=== PATIENT | female | born 1935 | race Hispanic/Latino ===

== ENCOUNTER 2018-04-25 02:35 | Inpatient (IN) | payer OTHER, MEDICARE ==
[~2018-04-25] VITALS: Ht 157.5 cm; Wt 64.4 kg
[~2018-04-25 02:35] MED LIST: ACETAMINOPHEN-1 EAC3 PO; ALENDRONATE SOD70 M2 PO; CEFUROXIME500 MG PO; GLIPIZIDE ER10 M1 PO; JANUMET XR 50-1 EAC1 PO; KOMBIGLYZE XR1 EAC2 PO; LISINOPRIL5 M1 PO; MELOXICAM15 M1; METHIMAZOLE5 M1 PO; NEXIUM40 M1 PO; SIMVASTATIN40 M1 PO; TOUJEO SOL300 UNIT/1 SC; ZOFRAN ODT4 M1 PO
[2018-04-25 04:55] LABS: ABSOLUTE BASOPHIL COUNT 0 /CUMM (0.0-0.2); ABSOLUTE EOSINOPHIL COUNT 0.1 /CUMM (0.0-0.7); ABSOLUTE GRANULOCYTE CT 4.4 /CUMM (1.4-6.5); ABSOLUTE LYMPH COUNT 1.8 /CUMM (1.2-3.4); ABSOLUTE MONOCYTE COUNT 0.5 /CUMM (0.10-0.60); BASOPHIL % 0.4 % (0.0-2.0); EOSINOPHIL % 1.4 % (0-5); GRANULOCYTE % 64.7 % (42.2-75.2); HEMATOCRIT 41.3 % (37-47); MEAN CORPUSCULAR HGB 29.3 PG (27.0-31.0); MEAN CORPUSCULAR HGB CONC 33.7 G/DL (33.0-37.0); MEAN CORPUSCULAR VOLUME 87.2 FL (81.0-99.0); MEAN PLATELET VOLUME 7.7 FL (7.4-10.4); PLATELET COUNT 283 /CUMM (130-400); RBC DISTRIBUTION WIDTH 12.5 % (11.5-14.5); RED BLOOD CELL CT 4.74 /CUMM (4.20-5.40); WHITE BLOOD CELL COUNT 6.8 /CUMM (4.8-10.8)
--- NOTE | 2018-04-25 05:17 | RADIOLOGY REPORT ---
EXAMINATION: XR PORTABLE CHEST CLINICAL INFORMATION: Hypoxia COMPARISON: 10/22/2015 TECHNIQUE: Portable frontal view of the chest was obtained. FINDINGS: Lung volumes are symmetric. No focal consolidation is seen. Mild right basilar subsegmental atelectasis is suspected. No evidence of pneumothorax, pleural effusion, or pulmonary edema. Cardiac size is within normal limits. Calcification is present at the aortic arch. No acute osseous findings are seen. IMPRESSION: No acute cardiopulmonary findings.
--- NOTE | 2018-04-25 05:20 | History & Physical ---
Luis E Quintana 04/25/18 0519: General Information and HPI MD Statement: I have seen and personally examined DARREN CASTLE and documented this H&P. The patient is a 82 year old F who presented with a patient stated chief complaint of [chest pain]. Source of Information: patient, family Exam Limitations: language barrier History of Present Illness: The patient is an 82-year-old female with a past medical history significant for diabetes mellitus, hypertension, hyperlipidemia, rheumatoid arthritis, hypothyroidism who presented to ED due to chest pain and shortness of breath. The patient is primarily Cuban-speaking and she was accompanied by her daughter who did the translation during the interview and physical examination. She was sleeping tonight when she woke up at 1:45 AM with heavy sweating and chest pain 8/10, left-sided, associated with shortness of breath, and dizziness. He called 911, when they got there they gave the patient aspirin, and sublingual nitroglycerin which decreased the pain to 3-4/10. The patient does not have any history of cardiac problems and was seen by Dr. Arias in February, echocardiogram and EKG were normal. Last September a stress test was done for her which was normal. Her daughter states that she does not have any cardiac disease she only follows with perfume compounder for checkup. She has been experiencing cramps in her lower extremities, and she had them during the interview. She also has a history of diabetes mellitus, but her blood sugars were in 120s-150s. Her insurance sales executive is Dr. Kiser, and her PCP is Dr. Zabala. She is states that her chest pain is worsened with coughing, deep respiration, and is reproducible with pressure applied on her chest wall. Allergy: No known allergies to any medications or food Past medical history: Diabetes mellitus, hypertension, hypercholesterolemia, rheumatoid arthritis, hyperparathyroidism, hearing impairment bilaterally Past surgical history: Left knee replacement, hip replacement Family history: Noncontributory Social history: She has never smoked, denies alcohol use or recreational drug use. Her primary language is Cuban and she cannot speak Thai, her daughter acts as entertainment agent. Allergies/Medications Allergies: Coded Allergies: soy (ANAPHYLAXIS 11/11/15) Home Med list Alendronate Sodium 70 MG TABLET 1 TAB PO QSAT BONES (Reported) in the morning, at least 30 minutes before the first food, beverage, or medication of the day Canagliflozin (Invokana) 100 MG TABLET 1 TAB PO DAILY DM (Reported) Esomeprazole (Nexium) 40 MG CAPSULE.DR 1 CAP PO DAILY GI (Reported) Fenofibrate Nanocrystallized (Fenofibrate) 48 MG TABLET 1 TAB PO DAILY HLD ( Reported) Glipizide (Glipizide ER) 10 MG TAB.ER.24 1 TAB PO DAILY DIABETES (Reported) Hydroxychloroquine Sulfate 200 MG TABLET 1 TAB PO DAILY RA (Reported) Insulin Glargine,Hum.rec.anlog (Basaglar Kwikpen U-100) 100 UNIT/ML (3 ML) INSULN.PEN 25 UNITS SC DAILY DM (Reported) Lisinopril 5 MG TABLET 1 TAB PO DAILY BP (Reported) Methimazole 5 MG TABLET 1 TAB PO DAILY THYROID (Reported) Prednisone 2.5 MG TABLET 1 TAB PO DAILY RA (Reported) Simvastatin (Simvastatin*) 40 MG TABLET 1 TAB PO QPM HLD (Reported) Sitagliptin Phos/Metformin HCl (Janumet XR 50-1,000 MG Tablet) 1 EACH TBMP.24HR 1 TAB PO DAILY DM (Reported) Compliance With Home Meds: GOOD Past History Travel History Traveled to [place] past 21 day No Medical History Cardiovascular: hypertension, hyperlipidemia Gastrointestinal: GERD Endocrine: diabetes History of MRSA: No History of VRE: No History of CDIFF: No Surgical History Surgical History: non-contributory Past Family/Social History Psychosocial History Services at Home: Nursing, Physical Therapy Review of Systems Review of Systems Constitutional: Reports: see HPI. Exam & Diagnostic Data Last 24 Hrs of Vital Signs/I&O Vital Signs Date Time Temp Pulse Resp B/P B/P Pulse O2 O2 Flow FiO2 Mean Ox Delivery Rate 04/25 0615 97.4 72 18 164/74 98 Nasal 4.0L Cannula 04/25 0445 97 Nasal 4.0L Cannula 04/25 0430 97.0 76 20 170/78 96 Nasal 4.0L Cannula 04/25 0300 95 Nasal 4.0L Cannula 04/25 0247 97.6 79 22 173/80 95 Nasal 4.0L Cannula Intake & Output 04/25 1600 04/25 0800 04/25 0000 Intake Total Output Total 350 Balance -350 Output, Urine 350 Patient 126 lb Weight Weight Reported by Patient Measurement Method Physical Exam General Appearance Alert, Oriented X3, Cooperative, No Acute Distress Skin No Rashes Skin Temp/Moisture Exam: Warm/Dry Sepsis Skin Exam (color): Normal for Ethnicity HEENT Atraumatic, PERRLA Neck Supple Cardiovascular Regular Rate, Normal S1, Normal S2 Lungs Clear to Auscultation, Normal Air Movement Abdomen Normal Bowel Sounds, Soft, No Tenderness Neurological Normal Speech, Strength at 5/5 X4 Ext, Normal Tone, Sensation Intact Extremities No Clubbing, No Cyanosis, No Edema, Normal Pulses Vascular Normal Pulses, Pulses Symmetrical Sepsis Peripheral Pulse Location: Dorsalis Pedis Sepsis Peripheral Pulse Exam: Normal Sepsis Cap Refill Exam: <2 Sec Last 24 Hrs of Labs/Ronald: Laboratory Tests 04/25/18354: Anion Gap 12, Estimated GFR 43 L, Glucose 110 H, Hemoglobin A1c 7.5 H, Calcium 9.4, Phosphorus 3.6, Magnesium 1.6, Total Bilirubin 0.2, AST 20, ALT 19, Troponin I < 0.01, Gkx-T-Trtptunhpus Pept 455 H, Albumin 4.3, Triglycerides 213 H, Cholesterol 152, LDL Cholesterol, Calc 65, HDL Cholesterol 45, Cholesterol/ HDL Ratio 3, TSH 0.036 L, Free T4 1.64, D-Dimer High Sensitivty < 200, CBC w Diff NO MAN DIFF REQ, RBC 4.74, MCV 87.2, MCH 29.3, MCHC 33.7, RDW 12.5, MPV 7.7 , Gran % 64.7, Lymphocytes % 25.9, Monocytes % 7.6, Eosinophils % 1.4, Basophils % 0.4, Absolute Granulocytes 4.4, Absolute Lymphocytes 1.8, Absolute Monocytes 0.5, Absolute Eosinophils 0.1, Absolute Basophils 0 04/25/185: Urinalysis LIGHT H, Urine Color YEL, Urine Clarity CLEAR, Urine pH 6.5, Ur Specific [place] 1.010, Urine Protein 30 H, Urine Ketones NEG, Urine Nitrite NEG, Urine Bilirubin NEG, Urine Urobilinogen 0.2, Ur Leukocyte Esterase SMALL H , Ur Microscopic SEDIMENT EXAMINED, Urine WBC 5-10 H, Ur Epithelial Cells FEW, Urine Bacteria FEW H, Urine Hemoglobin NEG, Urine Glucose NEG Microbiology 04/25 355 BLOOD: Blood Culture - RECD 04/25 345 URINE ROUT: Urine Culture - RECD 04/25 335 BLOOD: Blood Culture - RECD Assessment/Plan Assessment: Patient is an 82-year-old female past medical history significant for diabetes, hyperlipidemia, hypertension, rheumatoid arthritis on prednisone and chronic kidney disease who presented to ED with left-sided chest pain and sweating which woke her from sleep in the middle of night. Chest pain rule out ACS: The patient has diabetes, hypertension, is on prednisone, hyperlipidemia, and is high risk for ACS. Since the pain was aggravated by deep respiration and coughing pericarditis is also one possibility , and musculoskeletal causes cannot be ruled out. But since the patient woke up in the middle of the night with left-sided chest pain, dizziness, and sweating the most possible diagnosis would be ACS. Plan: Admit the patient to telemetry floor, continuous cardiac monitoring, serial EKG and troponins, perfume compounder consult As Ranked By This Provider Problem List: 1. Hyperthyroidism 2. Diabetes mellitus type 2 3. Chest pain Core Measures/Misc (04/23) Acute Coronary Syndrome ACS Diagnosis: No Congestive Heart Failure Congestive Heart Failure Diagnosis No Cerebrovascular Accident CVA/TIA Diagnosis: No VTE (View Protocol) VTE Risk Factors Age>40 No Mechanical VTE Prophylaxis d/t N/A MechProphylax Ordered No VTE Pharm Prophylaxis d/t NA PharmProphylax ordered Sepsis (View protocol) Sepsis Present: No If YES complete Sepsis Event Note If YES complete Sepsis Event Note Akiko Maier MD 04/25/18 0657: Core Measures/Misc (04/23) Sepsis (View protocol) If YES complete Sepsis Event Note If YES complete Sepsis Event Note Resident Review Statement Resident Statement: examined this patient, discussed with internist, agreed with internist, discussed with family, reviewed EMR data (avail), amended to note Other Findings: Patient is an 82-year-old Cuban only speaking female with past medical history of diabetes, hypertension, hyperlipidemia, rheumatoid arthritis, hyperthyroidism presenting this admission with chief complaint of difficulty breathing and chest pain. Patient is Cuban-speaking only. Patient's daughter was at bedside and provided translation and additional information. Patient was awoken 2-3 hours prior to admission due to difficulty catching her breath. Patient reports left- sided sharp stabbing chest pain, nonradiating, constant lasting approximately 1 hour. Reports pain was initially an 8 out of 10 in severity. After receiving aspirin and sublingual nitroglycerin from EMS patient's pain subsided to a 3-4 out of 10. Associated symptoms include sweats and difficulty breathing. Also reports dizziness however states that this is a chronic issue. Patient reports that chest pain worsens with deep inspiration and movement. Patient denies fever, chills, nausea/vomiting, constipation/diarrhea, dysuria/hematuria. Patient denies having these type of symptoms in the past. Patient's perfume compounder is Dr. Vazquez whom she saw last in February and per her daughter everything was normal. Daughter states that she had a stress test earlier in September/October of this year which was normal and an echocardiogram which was reportedly normal. Patient also sees Dr. Kiser for her diabetes. Reports no recent change in her medications. Patient's PCP is Dr. Zabala. Patient ED received DuoNeb treatment and IV Lasix 40 mg 1 due to concern of possible pulmonary edema. Past medical history: As above Past surgical history: Left knee replacement, right hip replacement Social history: Denies tobacco, alcohol, illicit drug use, currently uses a cane to ambulate and due to chronic dizziness and previous history of falls patient has a skiing teacher who stays with her Allergies: Denies any allergies to medications Patient is this 82-year-old Cuban-speaking female with past medical history significant for diabetes, hyperlipidemia, hypertension, rheumatoid arthritis on prednisone, hyperthyroidism, chronic kidney disease presenting this admission with chest pain that responded to aspirin and nitroglycerin. Chest pain is atypical, both pleuritic and positional in nature also reproducible on physical exam. Patient's EKG showed no significant ST or T-wave changes and her first troponin was negative. Patient did not appear to be fluid overloaded and chest x-ray was negative for any acute cardiopulmonary findings. However patient's blood pressure was elevated to 173/80 and patient's breathing improved after IV Lasix 40 mg 1. Differential diagnosis includes ACS, pericarditis, pulmonary edema, musculoskeletal pain, GERD. KENDRA score is 2 with age > 65 and signficant cardiac risk factors. Patient is at high risk of a cardiovascular event including arrhythmia, pericarditis, endocarditis in setting of rheumatoid arthritis and increased mortality. Will admit to tele for atypical pain to r/o ACS. Plan: Admit to telemetry to rule out ACS Serial EKG and troponins Continue aspirin High-dose statin Continue lisinopril Obtain records from perfume compounder, Dr. Vazquez in AM Check TSH, T4, Lipid, HbA1c Continue prednisone, methimazole, hydrochloroquine, fenofibrate, omeprazole Novolog SS with accuchecks TID/qhs Pain control with Tylenol, Voltaren gel DVT Prophylaxis: ALPS, Heparin SC Diet: Diabetic diet Code: Full code Zhou BYRDClaudia 04/25/18 1225: Core Measures/Misc (04/23) Sepsis (View protocol) If YES complete Sepsis Event Note If YES complete Sepsis Event Note Attending MD Review Statement Attending Statement Attending MD Statement: examined this patient, discuss w/resident/PA/SEO COORDINATOR, agreed w/resident/PA/SEO COORDINATOR, reviewed EMR data (avail) Attending Assessment/Plan: 82F PMH diabetes mellitus, hypertension, hyperlipidemia, rheumatoid arthritis, hypothyroidism presenting with sharp left sided chest pain and SOB that woke her up from sleep, improved with SLN in ER. Initial EKG is NSR without acute changes and with negative troponin. She currently has mild (3/10) left sided chest pain that does not radiate. She complains of vertigo that is positional, worse when leaning forward. Her cerebellar exam is negative and there is no nystagmus. Cardiopulmonary exam normal. Plan - Admit to telemetry - Serial EKG and troponin - Echocardiogram - Physical therapy eval for vertigo - If persistent would get neuro eval and possibly MRI for vertigo - Continue home medications - DVT PPx
--- NOTE | 2018-04-25 05:26 | ED DYSPNEA/ASTHMA COMPLAINT ---
History of Present Illness General Chief Complaint: Dyspnea (COPD, CHF, Other) Stated Complaint: DIFF BREATHING Source: patient, family, EMS Exam Limitations: no limitations Vital Signs & Intake/Output Vital Signs & Intake/Output Vital Signs Date Time Temp Pulse Resp B/P B/P Pulse O2 O2 Flow FiO2 Mean Ox Delivery Rate 04/25 0445 97 Nasal 4.0L Cannula Allergies Coded Allergies: soy (ANAPHYLAXIS 11/11/15) Reconcile Medications Alendronate Sodium 70 MG TABLET 1 TAB PO QSAT BONES (Reported) in the morning, at least 30 minutes before the first food, beverage, or medication of the day Cefuroxime Axetil (Cefuroxime) 500 MG TABLET 1 TAB PO BID urinary tract infection Esomeprazole (Nexium) 40 MG CAPSULE.DR 1 CAP PO DAILY GI (Reported) Glipizide (Glipizide ER) 10 MG TAB.ER.24 1 TAB PO DAILY DIABETES (Reported) Insulin Glargine,Hum.rec.anlog (Toujeo Solostar) 300 UNIT/ML (1.5 ML) INSULN.PEN 16 UNITS SC QPM DM (Reported) Lisinopril 5 MG TABLET 1 TAB PO DAILY BP (Reported) Methimazole 5 MG TABLET 1 TAB PO DAILY THYROID (Reported) Sitagliptin Phos/Metformin HCl (Janumet XR 50-1,000 MG Tablet) 1 EACH TBMP.24HR 1 TAB PO DAILY DM (Reported) Triage Nurses Notes Reviewed? yes Onset: Gradual Duration: hour(s): Timing: recent history Severity: moderate Activities at Onset: none Associated Symptoms: dyspnea, chest pain HPI: 82 yo woman h/o diabetes, presents with dyspnea and hypoxia for the past several hours. Early this morning, she developed chest pain. 911 called. She was given oxygen, nitro x1, and a duo neb. Her 02 sat improved from 88% to 95% on supplemental oxygen. Her chest pain resolved. She notes no fever, chills, phlegm, wheezing, lower extremity edema. She is otherwise well. Past History Travel History Traveled to [place] past 21 day No Medical History Any Pertinent Medical History? see below for history Cardiovascular: hypertension, hyperlipidemia Gastrointestinal: GERD Endocrine: diabetes History of MRSA: No History of VRE: No History of CDIFF: No Surgical History Surgical History: non-contributory Psychosocial History Who do you live with Daughter Services at Home Nursing, Physical Therapy What is your primary language Tajik Family History Hx Contributory? No Review of Systems Review of Systems Constitutional: Reports: no symptoms. EENTM: Reports: no symptoms. Respiratory: Reports: no symptoms. Cardiovascular: Reports: no symptoms. GI: Reports: no symptoms. Genitourinary: Reports: no symptoms. Musculoskeletal: Reports: no symptoms. Skin: Reports: no symptoms. Neurological/Psychological: Reports: no symptoms. Hematologic/Endocrine: Reports: no symptoms. Immunologic/Allergic: Reports: no symptoms. All Other Systems: Reviewed and Negative Physical Exam Physical Exam Respiratory: See below Comments: Physical Exam Physical Exam General Appearance: well developed/nourished, no apparent distress Head: atraumatic, normal appearance Eyes: Bilateral: normal appearance. Ears, Nose, Throat: normal pharynx, normal ENT inspection Neck: normal inspection, supple, full range of motion Respiratory: diminished breath sounds with rales at bases, chest non-tender, no respiratory distress, quiet respiration, lungs clear Cardiovascular: regular rate/rhythm Gastrointestinal: normal bowel sounds, soft, non-tender, no organomegaly Back: normal inspection, normal range of motion Extremities: normal inspection, normal capillary refill, normal range of motion, no edema Neurologic/Psych: no motor/sensory deficits, awake, alert, oriented x 3 Skin: intact, normal color, warm/dry Core Measures ACS in differential dx? Yes (aspirin ordered) CVA/TIA Diagnosis No Sepsis Present: No Sepsis Focused Exam Completed? No Progress Differential Diagnosis: asthma, AMI, CHF, COPD, pneumonia, unstable angina Plan of Care: Orders Procedure Date/time Status Nothing by Mouth 04/25 B Active Saline Lock 04/25 050 Active ED Holding Orders 04/25 0501 Active Admit to inpatient 04/25 0501 Active Vital Signs 04/25 0501 Active EKG 04/25 0501 Active Code Status 04/25 0501 Active BLOOD CULTURE 04/25 0355 Active TROPONIN LEVEL 04/25 0355 Complete ICU LAB BUNDLE 04/25 0355 Complete D-DIMER 04/25 035 Complete CBC WITHOUT DIFFERENTIAL 04/25 035 Complete B-TYPE NATRIURETIC PEP (BNP) 04/25 0355 Complete URINALYSIS 04/25 0345 Complete BLOOD CULTURE 04/25 0335 Active Laboratory Tests 04/25/18 0355: Anion Gap 12, Estimated GFR 43 L, Glucose 110 H, Calcium 9.4, Phosphorus 3.6, Magnesium 1.6, Total Bilirubin 0.2, AST 20, ALT 19, Troponin I < 0.01, Pro-B- Natriuretic Pept 455 H, Albumin 4.3, D-Dimer High Sensitivty < 200, CBC w Diff NO MAN DIFF REQ, RBC 4.74, MCV 87.2, MCH 29.3, MCHC 33.7, RDW 12.5, MPV 7.7, Gran % 64.7, Lymphocytes % 25.9, Monocytes % 7.6, Eosinophils % 1.4, Basophils % 0.4, Absolute Granulocytes 4.4, Absolute Lymphocytes 1.8, Absolute Monocytes 0.5 , Absolute Eosinophils 0.1, Absolute Basophils 0 04/25/18 0345: Urinalysis LIGHT H, Urine Color YEL, Urine Clarity CLEAR, Urine pH 6.5, Ur Specific [place] 1.010, Urine Protein 30 H, Urine Ketones NEG, Urine Nitrite NEG, Urine Bilirubin NEG, Urine Urobilinogen 0.2, Ur Leukocyte Esterase SMALL H , Ur Microscopic SEDIMENT EXAMINED, Urine WBC 5-10 H, Ur Epithelial Cells FEW, Urine Bacteria FEW H, Urine Hemoglobin NEG, Urine Glucose NEG Microbiology 04/25 0355 BLOOD: Blood Culture - RECD 04/25 0335 BLOOD: Blood Culture - RECD Diagnostic Imaging: Viewed by Me: Radiology Read. Discussed w/RAD: Radiology Read. CXR Impression: PATIENT: DARREN CASTLE PRESENT AGE: 82 PATIENT ACCOUNT NO: [id number] : 34 LOCATION: [facility] ORDERING PHYSICIAN: Stanislaw Jones DO (TBS) SERVICE DATE: 04/25/18- EXAM TYPE: RAD - XRY-PORTABLE CHEST XRAY EXAMINATION: XR PORTABLE CHEST CLINICAL INFORMATION: Hypoxia COMPARISON: 10/22/2015 TECHNIQUE: Portable frontal view of the chest was obtained. FINDINGS: Lung volumes are symmetric. No focal consolidation is seen. Mild right basilar subsegmental atelectasis is suspected. No evidence of pneumothorax, pleural effusion, or pulmonary edema. Cardiac size is within normal limits. Calcification is present at the aortic arch. No acute osseous findings are seen. IMPRESSION: No acute cardiopulmonary findings. DICTATED BY: Janes Welch MD DATE/TIME DICTATED:04/25/18511 SENIOR STACK ENGINEER:RANDA DATE/TIME TRANSCRIBED:04/25/18511 CONFIDENTIAL, DO NOT COPY WITHOUT APPROPRIATE AUTHORIZATION. <Electronically signed in Other Vendor System> SIGNED BY: Janes Welch MD 04/25/18 05 Initial ED EKG: sinus, no acute changes Departure Departure Disposition: STILL A PATIENT Condition: Stable Clinical Impression Primary Impression: Dyspnea Referrals: Sagrario BYRD,Mary Jolly (PCP/Family) Departure Forms: Customer Survey General Discharge Information Admission Note Spoke With: Zaheer Espinal MD Documentation of Exam: Documentation of any treatments & extenuating circumstances including Concerns Regarding Discharge (functional status, medication knowledge or non-compliance, living conditions, etc.) that warrant an admission rather than observation: pt presented hypoxic to high 80's, with nitro responsive chest pain, now feeling better with benign labs.... pt merits cards eval, serial trops, ekg's. Critical Care Note Critical Care Note Critical Care Time: non-applicable
[2018-04-25] MEDS ORDERED: BASAGLAR K100 UNIT/1 SC (05:52)
[2018-04-25] MEDS ORDERED: HYDROXYCHLOROQ200 M2 PO (05:53)
[2018-04-25] MEDS ORDERED: PREDNISONE2.5 M1 PO (05:53)
[2018-04-25] MEDS ORDERED: INVOKANA100 M1 PO (05:54)
[2018-04-25] MEDS ORDERED: FENOFIBRATE48 M1 PO (05:54)
[2018-04-25] MEDS ORDERED: JANUMET 50-1,01 EACH PO (05:54)
[2018-04-25] MEDS ORDERED: SIMVASTATIN40 M1 PO (05:54)
--- NOTE | 2018-04-25 08:34 | Event Note ---
Event Note Event Note: This is a 82 yo female with PMH of RA on DMARD (Prednisone and Hydroxychloroquine), DM on Insulin, Hyperthyroidism on Methamazole, HTN, HLD, who comes in for CC of CP, SOB and diaphoresis. The CP seemed atypical in nature as it was positional and reproducible, but given age, comorbidites including DM and RA she has higher pre-test probability of CAD and cardiovascular morbidity and mortality even though her KENDRA score is 2. Will admit and rule out ACS. PLAN: 1. ACS: She sees Dr. Vazquez for cardiology. Apparently has had a recent stress echo which was negative. I called Dr. Vazquez's office at [phone] and was placed on the nursing line and asked to leave a voice message. I requested a call back but given that it was voice message, I did not leave patient information. I left my phone number and pager and requested a call back. DDX of her cp includes CAD ([place]), pericarditis or non cardiac chest pain. * Will call sewer contractor and obtain further recs and records * F/U trop and EKG * Got ASA * Con't home Statin and fibrate * Nitro PRN 2. Hyperthyroidism: TSH is low at .03. * Con't Methamazole 3. HTN: * Con't Lisinopril * Pt got Lasix in ED, but cxr and exam not indicative of volume overload. 4. DM: A1c 7.5. * Hold oral hypoglycemics * RISS * DM diet 5. RA * Con't Prednisone * Con't Hydroxychloroquine 6. HLD: Lipids elevated at 216. * Con't statin and fibrate 7. Vertigo: She now has new vertigo/dizziness. No noted nystagmus. * PT consult * If vertigo doesn't improve she will need further imaging
[2018-04-25 14:52] VITALS: BP 140/70
[2018-04-25 22:22] VITALS: BP 136/68
[2018-04-26 05:56] VITALS: BP 110/62
--- NOTE | 2018-04-26 07:37 | Cons- Cardiology ---
General Information and HPI Consulting Request Date of Consult: 04/26/18 Requested By: Claudia Epperson MD Reason for Consult: CP, SOB Source of Information: patient, family Exam Limitations: no limitations History of Present Illness: Asked by Dr. Epperson to evaluate patient for chest pain and dyspnea. 82 year old female with a past medical history significant for diabetes mellitus , hypertension, hyperlipidemia, rheumatoid arthritis, hypothyroidism woke up last night with sudden onset of left-sided sharp chest pain associated with shortness of breath. Chest pain was slightly worse with upper body movement. Her daughter called ambulance and she presented to the emergency room. She was hypoxic with oxygen saturation 88%. Her chest x-ray was negative. She received 40 mg of intravenous Lasix with good diuresis. The chest pain lasted almost all day yesterday but it was much milder after she was given nitroglycerin in the ambulance. She is currently chest pain-free. She had a nuclear stress test in 2017 about 16 months ago for atypical chest pain which was different from yesterday presentation. At that time nuclear stress test was normal. Allergies/Medications Allergies: Coded Allergies: soy (ANAPHYLAXIS 11/11/15) Home Med List: Alendronate Sodium 70 MG TABLET 1 TAB PO QSAT BONES (Reported) in the morning, at least 30 minutes before the first food, beverage, or medication of the day Canagliflozin (Invokana) 100 MG TABLET 1 TAB PO DAILY DM (Reported) Esomeprazole (Nexium) 40 MG CAPSULE.DR 1 CAP PO DAILY GI (Reported) Fenofibrate Nanocrystallized (Fenofibrate) 48 MG TABLET 1 TAB PO DAILY HLD ( Reported) Glipizide (Glipizide ER) 10 MG TAB.ER.24 1 TAB PO DAILY DIABETES (Reported) Hydroxychloroquine Sulfate 200 MG TABLET 1 TAB PO DAILY RA (Reported) Insulin Glargine,Hum.rec.anlog (Basaglar Kwikpen U-100) 100 UNIT/ML (3 ML) INSULN.PEN 25 UNITS SC DAILY DM (Reported) Lisinopril 5 MG TABLET 1 TAB PO DAILY BP (Reported) Methimazole 5 MG TABLET 1 TAB PO DAILY THYROID (Reported) Prednisone 2.5 MG TABLET 1 TAB PO DAILY RA (Reported) Simvastatin (Simvastatin*) 40 MG TABLET 1 TAB PO QPM HLD (Reported) Sitagliptin Phos/Metformin HCl (Janumet XR 50-1,000 MG Tablet) 1 EACH TBMP.24HR 1 TAB PO DAILY DM (Reported) Current Medications: Current Medications Sig/Renny Start time Last Medication Dose Route Stop Time Status Admin Acetaminophen 650 MG Q6P PRN 04/25 0545 AC PO Acetaminophen 1,000 MG Q6P PRN 04/25 545 AC IV Aspirin 325 MG DAILY 04/25 09 AC PO Aspirin 0 .STK-MED ONE 04/25 0745 DC PO Atorvastatin Calcium 80 MG 1700 04/25 600 AC PO Diclofenac Sodium 1 ALICE 4 TIMES/DAY PRN 04/25 0615 AC 04/25 TOP 1139 Fenofibrate 48 MG DAILY 04/25 900 AC 04/25 PO 0914 Heparin Sodium 0 .STK-MED ONE 04/25 745 DC (Porcine) .ROUTE Heparin Sodium 5,000 UNIT Q8 04/25 600 AC 04/26 (Porcine) SC 0543 Hydroxychloroquine 200 MG DAILY 04/25 900 AC 04/25 Sulfate PO 0914 Influenza Virus 0.5 ML ONCE ONE 04/25 2030 DC 04/26 Vaccine IM 04/25 2031 0548 Insulin Aspart 0 TIDAC 04/25 08 AC 04/25 SC 1746 Lisinopril 5 MG DAILY 04/25 900 AC 04/25 PO 0914 Magnesium Oxide 0 .STK-MED ONE 04/25 2226 DC PO Magnesium Oxide 400 MG BID 04/25 2219 AC 04/25 PO 04/28 0901 2223 Methimazole 5 MG DAILY 04/25 09 AC 04/25 PO 0914 Multivitamins 1 TAB DAILY 04/25 900 AC 04/25 PO 0914 Multivitamins 0 .STK-MED ONE 04/25 0745 DC PO Omeprazole 0 .STK-MED ONE 04/25 745 DC PO Omeprazole 40 MG DAILY AC 04/25 07 AC 04/26 PO 0544 Ondansetron HCl 4 MG Q6P PRN 04/25 545 AC IV Polyethylene Glycol 17 GM 00 04/26 09 AC PO Polyethylene Glycol 17 GM AT BEDTIME 04/25 2100 DC PO Prednisone 2.5 MG DAILY 04/25 09 AC 04/25 PO 0914 Senna/Docusate Sodium 1 TAB AT BEDTIME 04/25 2100 AC 04/25 PO 2052 Review of Systems Review of Systems Constitutional: Reports: weakness. Denies: no symptoms, see HPI, chills, diaphoresis, fever, malaise, unexplained weight loss. EENTM: Denies: no symptoms, see HPI, blurred vision, double vision, visual changes, eye pain, eye drainage, eye tearing, icterus, ear discharge, ear pain, ear redness, hearing changes, nasal congestion, epistaxis, nasal pain, throat pain, throat swelling, mouth pain, tooth pain. Cardiovascular: Denies: no symptoms, see HPI, chest pain, edema, orthopena, palpitations, peripheral edema, syncope. Respiratory: Reports: short of breath. Denies: no symptoms, see HPI, cough, hemoptysis, orthopnea, sputum production, stridor, wheezing. GI: Denies: no symptoms, see HPI, abdominal pain, bloating, constipation, diarrhea, distention, bowel incontinence, melena, nausea, bloody stool, changes in stool, vomiting, steatorrhea. Genitourinary: Denies: no symptoms, see HPI, discharge, dysuria, frequency, hematuria, hesitation, nocturia, pain, urgency. Musculoskeletal: Denies: no symptoms, see HPI, back pain, gout, joint pain, joint swelling, muscle pain, muscle stiffness, neck pain. Skin: Denies: no symptoms, see HPI, cysts, change in skin color, change in hair/nails, dryness, erythema, jaundice, lesions, lymphangitis, lumps, moles, rash. Neurological/Psychological: Denies: no symptoms, see HPI, anxiety, ataxia, cognitive dysfunction, confusion, depressed, dementia, emotional problems, headache, numbness, paresthesia, pre- existing deficit, petit mal seizures, tingling, tremors, tonic-clonic seizures, unable to move lower ext, unable to move upper ext, weakness, other. Hematologic/Endocrine: Denies: no symptoms, see HPI, bruising, bleeding, polyuria, polydipsia, other. Immunologic/Allergic: Denies: no symptoms, see HPI, splenectomy, HIV/AIDS, lymphadenopathy, other. Past History Travel History Traveled to [place] past 21 day No Medical History Blood Transfusion Hx: No EENT: hearing loss Cardiovascular: hypertension, hyperlipidemia Gastrointestinal: GERD Musculoskeletal: osteoarthritis Endocrine: diabetes, hypothyroidism Surgical History Surgical History: non-contributory Psychosocial History Where Do You Live? Home Services at Home: Nursing, Physical Therapy Smoking Status: Never Smoked ETOH Use: denies use Illicit Drug Use: denies illicit drug use Exam & Diagnostic Data Vital Signs and I&O Vital Signs Date Time Temp Pulse Resp B/P B/P Pulse O2 O2 Flow FiO2 Mean Ox Delivery Rate 04/26 0556 97.8 77 20 110/62 96 Nasal Cannula 04/25 2231 Nasal 4.0L Cannula 04/25 2222 97.9 77 20 136/68 98 Nasal Cannula 04/25 2103 Nasal 4.0L Cannula 04/25 1741 98 Nasal 4.0L Cannula 04/25 1452 98.0 78 20 140/70 98 Nasal Cannula 04/25 1301 97.7 69 18 128/59 98 Room Air Room Air 04/25 0914 72 164/74 Intake & Output 04/26 0800 04/26 0000 04/25 1600 04/25 0800 04/25 0000 04/24 1600 Intake Total Output Total 350 Balance -350 Output, Urine 350 Patient 141 lb 138 lb 126 lb Weight Weight Bed scale Bed scale Reported by Patient Measurement Method Physical Exam: No acute distress Skin-no rash HEENT-PERRLA Neck-JVP normal, no carotid bruit Lungs-bibasilar crackles present Heart-S1S2 regular, no murmur, rub or gallop +tenderness on left chest palpation Abdomen-soft, not tender, BS+, no organomegaly, no masses Extremities-no edema, 2+ pulses,no cyaonosis Vascular-no carotid bruits, good distal pulses Neuro-AAOx3, non focal Labs/Ronadl Results: Laboratory Tests 04/26 04/25 04/25 0622 1850 1036 Chemistry Sodium Pending Potassium Pending Chloride Pending Carbon Dioxide Pending Anion Gap Pending BUN Pending Creatinine Pending BUN/Creatinine Ratio Pending Troponin I (< 0.11 ng/ml) < 0.01 < 0.01 Hematology CBC w Diff Pending WBC Pending RBC Pending Hgb Pending Hct Pending MCV Pending MCH Pending MCHC Pending RDW Pending Plt Count Pending MPV Pending 04/25 04/25 0355 0345 Chemistry Sodium (137 - 145 mmol/L) 141 Potassium (3.5 - 5.1 mmol/L) 4.5 Chloride (98 - 107 mmol/L) 106 Carbon Dioxide (22 - 30 mmol/L) 23 Anion Gap (5 - 16) 12 BUN (7 - 17 mg/dL) 29 H Creatinine (0.5 - 1.0 mg/dL) 1.2 H Estimated GFR (>60 ml/min) 43 L Glucose (65 - 99 mg/dL) 110 H Hemoglobin A1c (4.2 - 5.8 %) 7.5 H Calcium (8.4 - 10.2 mg/dL) 9.4 Phosphorus (2.5 - 4.5 mg/dL) 3.6 Magnesium (1.6 - 2.3 mg/dL) 1.6 Total Bilirubin (0.2 - 1.3 mg/dL) 0.2 AST (14 - 36 U/L) 20 ALT (9 - 52 U/L) 19 Troponin I (< 0.11 ng/ml) < 0.01 Avy-H-Lsragqlxxky Pept (<125 pg/mL) 455 H Albumin (3.5 - 5.0 g/dL) 4.3 Triglycerides (<150 mg/dL) 213 H Cholesterol (<200 MG/DL) 152 LDL Cholesterol, Calc (65 - 129 mg/dL) 65 HDL Cholesterol (40 - 60 mg/dL) 45 Cholesterol/HDL Ratio (0.00 - 4.23 %) 3 TSH (0.270 - 4.200 uIU/mL) 0.036 L Free T4 (0.85 - 1.93 ng/dL) 1.64 Coagulation D-Dimer High Sensitivty (0 - 243 ng/ml) < 200 Hematology CBC w Diff NO MAN DIFF REQ WBC (4.8 - 10.8 /CUMM) 6.8 RBC (4.20 - 5.40 /CUMM) 4.74 Hgb (12.0 - 16.0 G/DL) 13.9 Hct (37 - 47 %) 41.3 MCV (81.0 - 99.0 FL) 87.2 MCH (27.0 - 31.0 PG) 29.3 MCHC (33.0 - 37.0 G/DL) 33.7 RDW (11.5 - 14.5 %) 12.5 Plt Count (130 - 400 /CUMM) 283 MPV (7.4 - 10.4 FL) 7.7 Gran % (42.2 - 75.2 %) 64.7 Lymphocytes % (20.5 - 51.1 %) 25.9 Monocytes % (1.7 - 9.3 %) 7.6 Eosinophils % (0 - 5 %) 1.4 Basophils % (0.0 - 2.0 %) 0.4 Absolute Granulocytes (1.4 - 6.5 /CUMM) 4.4 Absolute Lymphocytes (1.2 - 3.4 /CUMM) 1.8 Absolute Monocytes (0.10 - 0.60 /CUMM) 0.5 Absolute Eosinophils (0.0 - 0.7 /CUMM) 0.1 Absolute Basophils (0.0 - 0.2 /CUMM) 0 Urines Urinalysis LIGHT H Urine Color (YEL,AMB,STR) YEL Urine Clarity (CLEAR) CLEAR Urine pH (5.0 - 8.0) 6.5 Ur Specific [place] (1.001 - 1.035) 1.010 Urine Protein (NEG,<30 MG/DL) 30 H Urine Ketones (NEG) NEG Urine Nitrite (NEG) NEG Urine Bilirubin (NEG) NEG Urine Urobilinogen (0.1 - 1.0 EU/dl) 0.2 Ur Leukocyte Esterase (NEG) SMALL H Ur Microscopic SEDIMENT EXAMINED Urine WBC (0 - 2 /HPF) 5-10 H Ur Epithelial Cells (NONE,FEW) FEW Urine Bacteria (NEG/NONE) FEW H Urine Hemoglobin (NEG) NEG Urine Glucose (N MG/DL) NEG Diagnostic Data EKG Results SR, wnl CXR Results No acute disease Assessment/Plan Assessment/Plan 82 year old female with a past medical history significant for diabetes mellitus , hypertension, hyperlipidemia, rheumatoid arthritis, hypothyroidism woke up last night with sudden onset of left-sided sharp chest pain associated with shortness of breath. It is unclear if the chest pain was true angina but she clearly has reproducible chest pain on chest palpation. There is no electrocardiographic evidence of myocardial ischemia and serial cardiac troponins are negative. The d-dimer in the emergency room was negative as well. She has bibasilar crackles with elevated BNP level and the likely diagnosis is acute congestive heart failure with presumably preserved systolic function. Her echocardiogram results are pending. Her blood pressure in the emergency room was elevated which may have precipitated heart failure but we need to rule out transient myocardial ischemia as the cause as well. Plan: Lasix 40 mg iv bid today Monitor weight, I's and O's continue lisinopril add metoprolol succinate 25 mg qd ASA 81 mg qd statin await echo results wean off oxygen ambulate Pharmacological nuclear stress test tomorrow am Consult Acknowledgment - Thank you for your consult request.
--- NOTE | 2018-04-26 07:58 | PN- Housestaff ---
Juan Dyer 04/26/18 0758: Subjective Follow-up For: Atypical Chest pain, L-sided & reproducible on palpation Vertigo, BPPV Subjective: Afebrile overnight. Patient is seen and examined this morning. Patient states she was having some chest pain yesterday on admission, that is reproducible on palpation today. Patient however denies any palpitations, shortness of breath, lightheadedness, n/v, and fatigue. Patient also reports brief episodes of vertigo that are positional and usually result from moving in bed. Patient otherwise has no other complaints. Review of Systems Constitutional: Reports: see HPI. Objective Last 24 Hrs of Vital Signs/I&O Vital Signs Date Time Temp Pulse Resp B/P B/P Pulse O2 O2 Flow FiO2 Mean Ox Delivery Rate 04/26 0855 97.8 77 20 110/62 04/26 0855 97.8 77 20 110/62 04/26 0556 97.8 77 20 110/62 96 Nasal Cannula 04/25 2231 Nasal 4.0L Cannula 04/25 2222 97.9 77 20 136/68 98 Nasal Cannula 04/25 2103 Nasal 4.0L Cannula 04/25 1741 98 Nasal 4.0L Cannula 04/25 1452 98.0 78 20 140/70 98 Nasal Cannula 04/25 1301 97.7 69 18 128/59 98 Room Air Room Air Intake & Output 04/26 1600 04/26 0800 04/26 0000 Intake Total Output Total Balance Patient 141 lb Weight Weight Bed scale Measurement Method Physical Exam General Appearance: Alert, Oriented X3, Cooperative, No Acute Distress Skin: No Rashes, No Breakdown Skin Temp/Moisture Exam: Warm/Dry HEENT: Atraumatic Neck: Supple, No JVD Cardiovascular: Regular Rate, Normal S1, Normal S2, chest pain on palpation Lungs: Clear to Auscultation Abdomen: Soft, No Tenderness Neurological: Normal Speech Extremities: No Edema, Normal Pulses Assessment/Plan Assessment: CXR - No acute cardiopulmonary findings. ECHO - Normal size left ventricle. Normal left ventricular ejection fraction visually estimated at > 60%. Abnormal relaxation filling pattern of the left ventricle for age (stage 1 diastolic dysfunction). Mild mitral regurgitation. 82-year-old female past medical history significant for diabetes, hyperlipidemia , hypertension, rheumatoid arthritis on prednisone and chronic kidney disease stage 3B who presented to ED with left-sided chest pain and sweating which woke her from sleep in the middle of night. Patient is Korean-speaking only. Patient's daughter was at bedside and provided translation and additional information. Patient was awoken 2-3 hours prior to admission due to difficulty catching her breath. Patient reports left-sided sharp stabbing chest pain, nonradiating, constant lasting approximately 1 hour. Reports pain was initially an 8 out of 10 in severity. After receiving aspirin and sublingual nitroglycerin from EMS patient's pain subsided to a 3-4 out of 10. Associated symptoms include sweats and difficulty breathing. Also reported dizziness however stated that this is a chronic issue. Patient reports that chest pain worsens with deep inspiration and movement. Patient denies fever, chills, nausea/vomiting, constipation/diarrhea, dysuria/hematuria. Patient's pretzel twisting machine operator is Dr. Vazquez whom she saw last in February and per her daughter everything was normal. Daughter states that she had a stress test earlier in September/October of this year which was normal and an echocardiogram which was reportedly normal. Patient also sees Dr. Kiser (endocrinology) and Dr. Zabala ( PCP). Patient admitted to telemetry for the following reasons: #Atypical chest pain, left-sided and reproducible on palpation -Patient admitted to telemetry floor for management of vitals -Serial EKG/Trop; negative 3x -ECHO, follow up -Consulted cardiology; will have follow up Pharmacological nuclear stress test tmrw 04/27 #Diabetes mellitus -Insulin sliding scale -AccuChecks #Vertigo, positional -Physical therapy evaluation for vertigo; vestibular screen testing -Positive + left gaby-hallpike for Left BPPV, treated with Nam maneuver -PT assess patient may benefit from continued PT 1-2x/week to reassess vestibular functioning as needed -PT recommend home PT for safety evaluation -If persistent, will get neurological evaluation #Home medications -Continue home medications as required Code Status: Full Code Consistent Carb 2 Diet DVT PPx. Problem List: 1. Chest pain 2. Vertigo 3. Benign paroxysmal positional vertigo 4. Diabetes mellitus 5. Rheumatoid arthritis Pain Ratin Pain Location: na Pain Goal: Remain pain free Pain Plan: na Tomorrow's Labs & Rationales: routine Claudia Epperson MD 04/26/18 0925: Attending MD Review Statement Attending Statement Attending Statement: examined this patient, discuss w/resident/PA/[employer], agreed w/resident/PA/[employer], reviewed EMR data (avail) Attending Assessment/Plan: 82F PMH diabetes mellitus, hypertension, hyperlipidemia, rheumatoid arthritis, hypothyroidism presenting with sharp left sided chest pain and SOB that woke her up from sleep, improved with SLN in ER. Initial EKG is NSR without acute changes and with negative troponin. She currently has mild (3/10) left sided chest pain that does not radiate. Vertigo is better after Nam maneuver performed by PT. Plan - Continue on telemetry - Continue Lasix - Serial EKG and troponin - Echocardiogram - Physical therapy eval for vertigo - Continue home medications - DVT PPx - Anticipated discharge tomorrow
[2018-04-26 08:31] LABS: ABSOLUTE BASOPHIL COUNT 0 /CUMM (0.0-0.2); ABSOLUTE EOSINOPHIL COUNT 0.1 /CUMM (0.0-0.7); ABSOLUTE GRANULOCYTE CT 2.9 /CUMM (1.4-6.5); ABSOLUTE MONOCYTE COUNT 0.3 /CUMM (0.10-0.60); BASOPHIL % 0.4 % (0.0-2.0); EOSINOPHIL % 2.4 % (0-5); GRANULOCYTE % 53.9 % (42.2-75.2); HEMATOCRIT 37.2 % (37-47); MEAN CORPUSCULAR HGB 29.9 PG (27.0-31.0); MEAN CORPUSCULAR HGB CONC 34.2 G/DL (33.0-37.0); MEAN CORPUSCULAR VOLUME 87.4 FL (81.0-99.0); PLATELET COUNT 278 /CUMM (130-400); RBC DISTRIBUTION WIDTH 12.5 % (11.5-14.5); RED BLOOD CELL CT 4.25 /CUMM (4.20-5.40); WHITE BLOOD CELL COUNT 5.3 /CUMM (4.8-10.8)
--- NOTE | 2018-04-26 12:48 | ECHOCARDIOGRAM REPORT ---
DARREN CASTLE Age: 82 : 1935 Gender: F Exam Date: 04/25/2018 18:53 Exam Location: 1 [address] Ht (in): 62 Wt (lb): 126 BSA: 1.59 BP: 140 / 70 Ordering Physician: Suzanne Ma MD Referring Physician: Randy Vazquez M.D. Technologist: Kylah Robledo [facility] Room Number: 174-02 Indications: Chest pain Rhythm: Sinus Technical Quality: Technically difficult study FINDINGS Left Ventricle Normal size left ventricle. Normal left ventricular ejection fraction visually estimated at >60%. No obvious regional wall motion abnormalities. Abnormal relaxation filling pattern of the left ventricle for age (stage 1 diastolic dysfunction). Right Ventricle Normal right ventricular size and function. Right Atrium Normal right atrial size. Left Atrium Normal left atrial size. Mitral Valve Mitral annular calcification. Mild mitral regurgitation. Mitral valve thickened. Aortic Valve Aortic valve thickening. No aortic stenosis. No aortic regurgitation. Tricuspid Valve Tricuspid valve not well visualized, grossly normal. Trace tricuspid regurgitation. Pulmonic Valve Pulmonic valve not well visualized, grossly normal. Pericardium No pericardial effusion. Great Vessels Normal size aortic root. CONCLUSIONS Normal size left ventricle. Normal left ventricular ejection fraction visually estimated at > 60%. Abnormal relaxation filling pattern of the left ventricle for age (stage 1 diastolic dysfunction). Mild mitral regurgitation. Technically difficult study. Chris Wong M.D. (Electronically Signed) Final Date: 26 April 2018 12:47 MEASUREMENTS (Male / Female) Normal Values 2D ECHO LV Diastolic Diameter PLAX 2.9 cm 4.2 - 5.9 / 3.9 - 5.3 cm LV Systolic Diameter PLAX 1.8 cm 2.1 - 4.0 cm LV Fractional Shortening PLAX 37.9 % 25 - 46 % LV Ejection Fraction 2D Teich 69.8 % IVS Diastolic Thickness 1.1 cm LVPW Diastolic Thickness 1.0 cm LV Relative Wall Thickness 0.7 RV Internal Dim ED PLAX 2.0 cm 1.9 - 3.8 cm LVOT Diameter 2.0 cm Aortic Root Diameter 2.9 cm LA Systolic Diameter LX 3.4 cm 3.0 - 4.0 / 2.7 - 3.8 cm LA Volume 25.0 cm 18 - 58 / 22 - 52 cm Ascending Aorta Diameter 3.1 cm DOPPLER AV Peak Velocity 108.0 cm/s AV Peak Gradient 4.7 mmHg AV Mean Velocity 78.4 cm/s AV Mean Gradient 3.0 mmHg AV Velocity Time Integral 22.9 cm LVOT Peak Velocity 104.0 cm/s LVOT Peak Gradient 4.3 mmHg LVOT Mean Velocity 63.9 cm/s LVOT Mean Gradient 2.0 mmHg LVOT Velocity Time Integral 23.4 cm LVOT Stroke Volume 73.5 cm AV Area Cont Eq vti 3.2 cm AV Area Cont Eq pk 3.0 cm MV Peak Velocity 138.0 cm/s MV Peak Gradient 7.6 mmHg MV Mean Velocity 67.2 cm/s MV Mean Gradient 2.0 mmHg Mitral E Point Velocity 63.1 cm/s Mitral A Point Velocity 128.0 cm/s Mitral E to A Ratio 0.5 MV PHT Velocity 68.6 cm/s MV Deceleration [place] 222.0 cm/s MV Pressure Half Time 92.7 ms MV Area PHT 2.4 cm MV Deceleration Time 306.0 ms PV Peak Velocity 88.2 cm/s PV Peak Gradient 3.1 mmHg PV Mean Velocity 62.7 cm/s PV Mean Gradient 2.0 mmHg PV Velocity Time Integral 15.2 cm LV E' Lateral Velocity 5.7 cm/s Mitral E to LV E' Lateral Ratio 11.2 LV E' Septal Velocity 5.0 cm/s Mitral E to LV E' Septal Ratio 12.7
[2018-04-26 14:20] VITALS: BP 119/57
[2018-04-26 22:00] VITALS: BP 122/62
[2018-04-27 06:30] VITALS: BP 106/58
--- NOTE | 2018-04-27 07:13 | PN- Cardiology ---
Subjective Subjective: Overall improved, she still reports intermittent chest pain, dyspnea improved Objective Vital Signs and I&Os Vital Signs Date Time Temp Pulse Resp B/P B/P Pulse O2 O2 Flow FiO2 Mean Ox Delivery Rate 04/27 630 98.4 74 16 106/58 93 04/26 2200 98.4 68 18 122/62 94 04/26 2058 Nasal 1.0L Cannula 04/26 1420 98.0 74 18 119/57 94 Nasal 1.5L Cannula 04/26 0855 97.8 77 20 110/62 04/26 0855 97.8 77 20 110/62 04/26 0800 Nasal 2.0L Cannula Intake & Output 04/27 0800 04/27 0000 04/26 1600 04/26 0804/26 0000 04/25 1600 Intake Total 680 Output Total Balance 680 Intake, Oral 680 Patient 137 lb 141 lb 138 lb Weight Weight Bed scale Bed scale Bed scale Measurement Method Physical Exam: HEENT-PERRLA Neck-JVP normal, no bruit Lungs-left base crackles Heart-S1S2 regular, no murmur + chest pain on left chest palpation Abdomen-soft, not tender, BS+, no organomegaly, no masses Extremities-no edema, 2+ pulses Neuro-non focal Skin-no rash Current Medications: Current Medications Sig/Renny Start time Last Medication Dose Route Stop Time Status Admin Acetaminophen 650 MG Q6P PRN 04/25 545 AC PO Acetaminophen 1,000 MG Q6P PRN 04/25 0545 AC IV Aspirin 81 MG DAILY 04/26 900 AC 04/26 PO 0856 Aspirin 325 MG DAILY 04/25 900 DC PO Atorvastatin Calcium 80 MG 1700 04/25 600 AC 04/26 PO 1727 Diclofenac Sodium 1 ALICE 4 TIMES/DAY PRN 04/25 0615 04/25 TOP 1139 Fenofibrate 48 MG DAILY 04/25 900 AC 04/26 PO 0855 Furosemide 40 MG 7:30 AM, & 4:30 PM 04/26 1630 DC IV Furosemide 0 .STK-MED ONE 04/26 935 DC IV Furosemide 40 MG 7:30 AM, & 4:30 PM 04/26 0930 AC 04/26 IV 1727 Heparin Sodium 5,000 UNIT Q8 04/25 600 AC 04/27 (Porcine) SC 0542 Hydroxychloroquine 200 MG DAILY 04/25 900 AC 04/26 Sulfate PO 0856 Insulin Aspart 0 TIDAC 04/25 0800 AC 04/26 SC 1728 Lisinopril 5 MG DAILY 04/25 0900 AC 04/26 PO 0855 Magnesium Oxide 400 MG ONE ONE 04/26 1015 DC 04/26 PO 04/26 1016 1243 Magnesium Oxide 400 MG BID 04/25 2219 AC 04/26 PO 04/28 0901 2047 Methimazole 5 MG DAILY 04/25 09 AC 04/26 PO 0855 Metoprolol Succinate 25 MG DAILY 04/26 09 AC 04/26 PO 0855 Metoprolol Tartrate 25 MG DAILY 04/26 0900 CAN PO Multivitamins 1 TAB DAILY 04/25 09 AC 04/26 PO 0855 Omeprazole 40 MG DAILY AC 04/25 0700 AC 04/26 PO 0544 Ondansetron HCl 4 MG Q6P PRN 04/25 0545 AC IV Polyethylene Glycol 17 GM 04/26 0900 AC 04/26 PO 0856 Prednisone 2.5 MG DAILY 04/25 09 AC 04/26 PO 0855 Senna/Docusate Sodium 1 TAB AT BEDTIME 04/25 2100 AC 04/26 PO 2047 Results Last 48 Hrs of Labs/Mics: Laboratory Tests 04/27/18 0630: Sodium Pending, Potassium Pending, Chloride Pending, Carbon Dioxide Pending, Anion Gap Pending, BUN Pending, Creatinine Pending, BUN/Creatinine Ratio Pending , Magnesium Pending 04/26/18 0622: Anion Gap 10, Estimated GFR 29 L, BUN/Creatinine Ratio 22.4, CBC w Diff NO MAN DIFF REQ, RBC 4.25, MCV 87.4, MCH 29.9, MCHC 34.2, RDW 12.5, MPV 8.0, Gran % 53.9, Lymphocytes % 36.9, Monocytes % 6.4, Eosinophils % 2.4, Basophils % 0.4, Absolute Granulocytes 2.9, Absolute Lymphocytes 2.0, Absolute Monocytes 0.3, Absolute Eosinophils 0.1, Absolute Basophils 0 04/25/18 1850: Troponin I < 0.01 04/25/18 1036: Troponin I < 0.01 Recent Imaging Studies: Echo-normal LVEF, impaired relaxation Assessment/Plan Assessment/Plan 82 year old female with a past medical history significant for diabetes mellitus , hypertension, hyperlipidemia, rheumatoid arthritis, hypothyroidism woke up last night with sudden onset of left-sided sharp chest pain associated with shortness of breath. Clinical evidence of HFpEF. Troponin negative. Creatinine increased yesterday. Patient has persistent left base crackles, I's and O's not measured correctly. Echo showed diastolic dysfunction. Plan: repeat CXR to evaluate left base hold lasix if creatinine increased today wean off oxygen ambulate Pharmacological nuclear stress test today Continue telemetry? Yes
--- NOTE | 2018-04-27 07:37 | PN- Housestaff ---
See Addendum Juan Dyer 04/27/18 0736: Subjective Follow-up For: Atypical Chest pain, L-sided & reproducible on palpation Vertigo, BPPV Subjective: Afebrile overnight. Patient is seen and examined this morning. Patient states she is feeling good today. Patient still reports some occasional chest pain, but otherwise denies any shortness of breath, fevers, chills, and fatigue. Patient otherwise has no other complaints today and is scheduled for a stress test today. Review of Systems Constitutional: Reports: see HPI. Objective Last 24 Hrs of Vital Signs/I&O Vital Signs Date Time Temp Pulse Resp B/P B/P Pulse O2 O2 Flow FiO2 Mean Ox Delivery Rate 04/27 0630 98.4 74 16 106/58 93 04/26 2200 98.4 68 18 122/62 94 04/26 2058 Nasal 1.0L Cannula 04/26 1420 98.0 74 18 119/57 94 Nasal 1.5L Cannula 04/26 0855 97.8 77 20 110/62 04/26 0855 97.8 77 20 110/62 04/26 0800 Nasal 2.0L Cannula Intake & Output 04/27 0800 04/27 0000 04/26 1600 Intake Total 680 Output Total Balance 680 Intake, Oral 680 Patient 137 lb Weight Weight Bed scale Measurement Method Physical Exam General Appearance: Alert, Oriented X3, Cooperative, No Acute Distress Skin: No Rashes, No Breakdown Skin Temp/Moisture Exam: Warm/Dry HEENT: Atraumatic Neck: Supple, No JVD Cardiovascular: Regular Rate, Normal S1, Normal S2 Lungs: Normal Air Movement Abdomen: Soft, No Tenderness Neurological: Normal Speech Extremities: No Edema Assessment/Plan Assessment: CXR - No acute cardiopulmonary findings. ECHO - Normal size left ventricle. Normal left ventricular ejection fraction visually estimated at > 60%. Abnormal relaxation filling pattern of the left ventricle for age (stage 1 diastolic dysfunction). Mild mitral regurgitation. 82-year-old female past medical history significant for diabetes, hyperlipidemia , hypertension, rheumatoid arthritis on prednisone and chronic kidney disease stage 3B who presented to ED with left-sided chest pain and sweating which woke her from sleep in the middle of night. Patient is Estonian-speaking only. Patient's daughter was at bedside and provided translation and additional information. Patient was awoken 2-3 hours prior to admission due to difficulty catching her breath. Patient reports left-sided sharp stabbing chest pain, nonradiating, constant lasting approximately 1 hour. Reports pain was initially an 8 out of 10 in severity. After receiving aspirin and sublingual nitroglycerin from EMS patient's pain subsided to a 3-4 out of 10. Associated symptoms include sweats and difficulty breathing. Also reported dizziness however stated that this is a chronic issue. Patient reports that chest pain worsens with deep inspiration and movement. Patient denies fever, chills, nausea/vomiting, constipation/diarrhea, dysuria/hematuria. Patient's stenotype operator is Dr. Vazquez whom she saw last in February and per her daughter everything was normal. Daughter states that she had a stress test earlier in September/October of this year which was normal and an echocardiogram which was reportedly normal. Patient also sees Dr. Kiser (endocrinology) and Dr. Zabala ( PCP). Patient admitted to telemetry for the following reasons: #Atypical chest pain, left-sided and reproducible on palpation -Patient admitted to telemetry floor for management of vitals -Serial EKG/Trop; negative 3x -ECHO, follow up -Consulted cardiology; will have follow up Pharmacological nuclear stress test today 04/27, awaiting results -Discontinued Lasix as Creatinine had been increasing #Diabetes mellitus -Insulin sliding scale -AccuChecks #Vertigo, positional -Physical therapy evaluation for vertigo; vestibular screen testing -Positive + left gaby-hallpike for Left BPPV, treated with Nam maneuver -PT assess patient may benefit from continued PT 1-2x/week to reassess vestibular functioning as needed -PT recommend home PT for safety evaluation -If persistent, will get neurological evaluation #Home medications -Continue home medications as required Code Status: Full Code Consistent Carb 2 Diet DVT PPx. Problem List: 1. Chest pain 2. Vertigo 3. Benign paroxysmal positional vertigo 4. Diabetes mellitus 5. Rheumatoid arthritis Pain Ratin Pain Location: na Pain Goal: Remain pain free Pain Plan: na Tomorrow's Labs & Rationales: routine Claudia Epperson MD 04/27/18 1244: Attending MD Review Statement Attending Statement Attending MD Statement: examined this patient, discuss w/resident/PA/MOLD CLOSER, agreed w/resident/PA/MOLD CLOSER, reviewed EMR data (avail) Attending Assessment/Plan: 82F PMH diabetes mellitus, hypertension, hyperlipidemia, rheumatoid arthritis, hypothyroidism presenting with sharp left sided chest pain and SOB that woke her up from sleep, improved with SLN in ER. Initial EKG is NSR without acute changes and with negative troponin. Chest pain is better. No telemetry events.. Vertigo is better after Nam maneuver performed by PT. Plan - Continue on telemetry - Pharm stress test today - Continue Lasix - Serial EKG and troponin - Echocardiogram - Physical therapy eval for vertigo - Continue home medications - DVT PPx - Anticipated discharge later today
--- NOTE | 2018-04-27 09:23 | Patient Discharge Instructions ---
Discharge Instructions General Discharge Information You were seen/treated for: Chest Pain Vertigo You had these procedures: Pharmalogical Nuclear Stress Test ECHO CXR Watch for these problems: If you experience any worsening chest pain, shortness of breath, dizziness, and/ or fatigue please follow up with your PCP. Special Instructions: Please follow up with your PCP/Judicial Assistant within one week. Diet Continue normal diet: Yes Recommended Diet: Regular Activity Full Activity/No Limits: No Activity Self Limited: Yes Acute Coronary Syndrome Inclusion Criteria At DC or during hospital stay patient has or had the following: ACS DIAGNOSIS Yes Discharge Core Measures Meds if any: Prescribed or Continued at Discharge Meds if any: NOT Prescribed or Continued at Discharge Congestive Heart Failure Inclusion Criteria At DC or during hospital stay patient has or had the following: CHF DIAGNOSIS No Discharge Core Measures Meds if any: Prescribed or Continued at Discharge Meds if any: NOT Prescribed or Continued at Discharge Cerebrovascular accident Inclusion Criteria At DC or during hospital stay patient has or had the following: CVA/TIA Diagnosis No Discharge Core Measures Meds if any: Prescribed or Continued at Discharge Meds if any: NOT Prescribed or Continued at Discharge Venous thromboembolism Inclusion Criteria VTE Diagnosis No VTE Type NONE VTE Confirmed by (Test) NONE Discharge Core Measures - Per Current guidelines, there needs to be overlap - treatment for the first 5 days of Warfarin therapy. - If discharged on Warfarin prior to 5 days of - overlap therapy, the patient will need to be - assessed for post discharge needs including - *Post discharge parental anticoagulation - *Warfarin and/or parental anticoagulation education - *Follow up date to check INR post discharge At least 5 days overlap therapy as Inpatient No Meds if any: Prescribed or Continued at Discharge Note: Overlap Therapy is Warfarin and Anticoagulant Meds if any: NOT Prescribed or Continued at Discharge
[2018-04-27] MEDS ORDERED: TOPROL XL25 M1 PO ×2 (09:24→16:15)
--- NOTE | 2018-04-27 09:44 | Discharge Summary ---
See Addendum Visit Information Visit Dates Admission Date: 04/25/18 Discharge Date: 04/28/18 Hospital Course Course Attending Physician: Claudia Epperson MD Primary Care Physician: Mary Zabala MD Hospital Course: 82-year-old Montenegrin only speaking female with past medical history of diabetes, hypertension, hyperlipidemia, rheumatoid arthritis, hyperthyroidism presenting this admission with a chief complaint of difficulty breathing and chest pain. Patient is Montenegrin-speaking only. Patient's daughter was at bedside and provided translation and additional information. Patient was awoken 2-3 hours prior to admission due to difficulty catching her breath. Patient reports left- sided sharp stabbing chest pain, nonradiating, constant lasting approximately 1 hour. Reports pain was initially an 8 out of 10 in severity. After receiving aspirin and sublingual nitroglycerin from EMS patient's pain subsided to a 3-4 out of 10. Associated symptoms include sweats and difficulty breathing. Also reports dizziness however states that this is a chronic issue. Patient reports that chest pain worsens with deep inspiration and movement. Patient denies fever, chills, nausea/vomiting, constipation/diarrhea, dysuria/hematuria. 1. Atypical Chest pain -Patient admitted to telemetry and consulted cardiology regarding patient's chest pain. Patient's chest pain was left-sided however was reproducible on palpation. Ordered ECHO and pharmalogical nuclear stress test. ECHO showed Ejection fraction of greater than 60%. Lasix initially started at 40 mg IV BID due to elevated proBNP and bibasilar crackles noted on examination, however was subsequently discontinued the following day due to rising Creatinine level. Metoprolol 25 mg started as well to take daily. Nuclear imaging stress test performed which resulted in a normal study. Patient discharged to have close follow up with PCP and chute greaser upon discharge. Allergies: Coded Allergies: soy (ANAPHYLAXIS 11/11/15) Significant Procedures: NUCLEAR MYOCARDIAL PERFUSION IMAGING 04/27/18 - Normal Persantine stress and resting myocardial perfusion study with normal left ventricular wall motion and ejection fraction. ECHO - Normal size left ventricle. Normal left ventricular ejection fraction visually estimated at > 60%. Abnormal relaxation filling pattern of the left ventricle for age (stage 1 diastolic dysfunction). Mild mitral regurgitation. Disposition Summary Disposition Principal Diagnosis: Atypical Chest pain Additional Diagnosis: BPPV Discharge Disposition: home or self care Discharge Instructions General Discharge Information Code Status: Full Code Patient's Diet: Regular Patient's Activity: ad jama Follow-Up Instructions/Appts: Please follow up with your PCP/Railroad Cook within one week. Medications at Discharge Discharge Medications: Continue taking these medications: Alendronate Sodium (Alendronate Sodium) 70 MG TABLET 1 Tablet ORAL EVERY MONDAY Qty = 12 Instructions: in the morning, at least 30 minutes before the first food, beverage, or medication of the day Comments: PER PT DAUGHTER Glipizide (Glipizide ER) 10 MG TAB.ER.24 1 Tablet ORAL DAILY Qty = 90 Comments: PER PT DAUGHTER Lisinopril (Lisinopril) 5 MG TABLET 1 Tablet ORAL DAILY Qty = 30 Comments: PER PT DAUGHTER Methimazole (Methimazole) 5 MG TABLET 1 Tablet ORAL DAILY Qty = 90 Comments: PER PT DAUGHTER Esomeprazole (Nexium) 40 MG CAPSULE.DR 1 Capsule ORAL DAILY Qty = 30 Comments: PER PT DAUGHTER Sitagliptin Phos/Metformin HCl (Janumet XR 50-1,000 MG Tablet) 1 EACH TBMP.24HR 1 Tablet ORAL DAILY Qty = 180 Comments: PER PT DAUGHTER Insulin Glargine,Hum.rec.anlog (Basaglar Kwikpen U-100) 100 UNIT/ML (3 ML) INSULN.PEN 25 Units SC DAILY Prednisone (Prednisone) 2.5 MG TABLET 1 Tablet ORAL DAILY Hydroxychloroquine Sulfate (Hydroxychloroquine Sulfate) 200 MG TABLET 1 Tablet ORAL DAILY Fenofibrate Nanocrystallized (Fenofibrate) 48 MG TABLET 1 Tablet ORAL DAILY Simvastatin (Simvastatin*) 40 MG TABLET 1 Tablet ORAL Every night Canagliflozin (Invokana) 100 MG TABLET 1 Tablet ORAL DAILY Start taking the following new medications: Aspirin (Aspirin*) 81 MG TAB.CHEW 1 Tablet ORAL DAILY Qty = 30 No Refills Instructions: . Metoprolol Succ XL (Toprol XL) 25 MG TAB 1 Tablet ORAL DAILY Qty = 30 No Refills Instructions: . Copies To: Sagrario BYRD,Mary Jolly Attending MD Review Statement Documenting Attending: Claudia Epperson MD
[2018-04-27] MEDS ORDERED: ASPIRIN81 M4 PO ×2 (14:05→16:15)
--- NOTE | 2018-04-27 15:45 | NUCLEAR MEDICINE REPORT ---
PERSANTINE STRESS AND RESTING SPECT MYOCARDIAL PERFUSION IMAGING STUDY WITH GATED SPECT IMAGES: CLINICAL INDICATION: Chest pain. PROCEDURE: Regional myocardial perfusion was assessed using a 1 day protocol. Stress images were obtained on 04/27/2018 following the intravenous administration of 19.9 mCi Tc 99m Myoview. Stress consisted of 35 mg Persantine given intravenously. Following the sestamibi injection, 60 mg theophylline was given intravenously. Rest images were obtained 04/27/2018 following the intravenous administration of 31.2 mCi Technetium 99m Myoview. Single photon emission tomographic (SPECT) images were obtained. SPECT images were acquired in a 64 x 64 matrix of 64 projections over 180 degrees. These were reconstructed into standard short axis, horizontal and vertical long axis cardiac projections. FINDINGS: The post stress images demonstrate the left ventricular chamber to be normal in size. There is homogeneous distribution of activity in the left ventricular myocardium with no regions of abnormally decreased activity noted. The resting images also demonstrate homogeneous distribution of activity in the left ventricular myocardium, and are not significantly changed from the post stress images. The images were obtained using a gated SPECT technique, which permits visualization of wall motion and calculation of the left ventricular ejection fraction. No left ventricular wall motion abnormalities are noted on either the stress or resting study. The calculated left ventricular ejection fraction is 84% on the stress study. No previous study is available for comparison. IMPRESSION: Normal Persantine stress and resting myocardial perfusion study with normal left ventricular wall motion and ejection fraction.
--- NOTE | 2018-04-27 17:29 | RADIOLOGY REPORT ---
EXAMINATION: XR PORTABLE CHEST CLINICAL INFORMATION: Shortness of breath. COMPARISON: Chest x-ray 04/25/2018 TECHNIQUE: Portable frontal view of the chest was obtained. 4:42 PM FINDINGS: Lungs are clear. No pulmonary vascular congestion. There is no pleural effusion. The heart size is normal. The cardiac and mediastinal contours are normal. There are calcifications of the thoracic aorta. There are multilevel degenerative changes of dorsal spine. IMPRESSION: There is no acute abnormality of the chest.
[2018-04-27 22:47] VITALS: BP 122/78
[2018-04-28 06:00] VITALS: BP 134/78
--- NOTE | 2018-04-28 08:40 | PN- Housestaff ---
See Addendum Subjective Follow-up For: Atypical Chest pain, L-sided & reproducible on palpation Vertigo, BPPV Subjective: Afebrile overnight. Patient is seen and examined this morning. Patient states she is not experiencing any recurrent chest pain. Patient however states she has been experiencing some chest pain with positioning, usually left-sided, and tender on palpation. Patient however denies any shortness of breath, fevers, chills, and fatigue. Review of Systems Constitutional: Reports: see HPI. Objective Last 24 Hrs of Vital Signs/I&O Vital Signs Date Time Temp Pulse Resp B/P B/P Pulse O2 O2 Flow FiO2 Mean Ox Delivery Rate 04/28 0919 68 134/78 04/28 0905 68 134/78 04/28 0600 98.3 68 18 134/78 94 Nasal 1.0L Cannula 04/28 0000 Nasal 1.0L Cannula 04/27 2247 98.3 76 18 122/78 94 Nasal Cannula Intake & Output 04/28 1600 04/28 0800 04/28 0000 Intake Total 120 120 Output Total 450 400 Balance -330 -280 Intake, Oral 120 120 Output, Urine 450 400 Patient 142 lb Weight Weight Bed scale Measurement Method Physical Exam General Appearance: Alert, Oriented X3, Cooperative, No Acute Distress Skin: No Rashes, No Breakdown Skin Temp/Moisture Exam: Warm/Dry HEENT: Atraumatic Neck: Supple, No JVD Cardiovascular: Regular Rate, Normal S1, Normal S2, tender to palpation Lungs: Clear to Auscultation Abdomen: Soft, No Tenderness Neurological: Normal Speech Extremities: No Edema Assessment/Plan Assessment: NUCLEAR MYOCARDIAL PERFUSION IMAGING 04/27/18 - Normal Persantine stress and resting myocardial perfusion study with normal left ventricular wall motion and ejection fraction. CXR - No acute cardiopulmonary findings. ECHO - Normal size left ventricle. Normal left ventricular ejection fraction visually estimated at > 60%. Abnormal relaxation filling pattern of the left ventricle for age (stage 1 diastolic dysfunction). Mild mitral regurgitation. 82-year-old female past medical history significant for diabetes, hyperlipidemia , hypertension, rheumatoid arthritis on prednisone and chronic kidney disease stage 3B who presented to ED with left-sided chest pain and sweating which woke her from sleep in the middle of night. Patient is Georgian-speaking only. Patient's daughter was at bedside and provided translation and additional information. Patient was awoken 2-3 hours prior to admission due to difficulty catching her breath. Patient reports left-sided sharp stabbing chest pain, nonradiating, constant lasting approximately 1 hour. Reports pain was initially an 8 out of 10 in severity. After receiving aspirin and sublingual nitroglycerin from EMS patient's pain subsided to a 3-4 out of 10. Associated symptoms include sweats and difficulty breathing. Also reported dizziness however stated that this is a chronic issue. Patient reports that chest pain worsens with deep inspiration and movement. Patient denies fever, chills, nausea/vomiting, constipation/diarrhea, dysuria/hematuria. Patient's housekeeping and laundry team leader is Dr. Vazquez whom she saw last in February and per her daughter everything was normal. Daughter states that she had a stress test earlier in September/October of this year which was normal and an echocardiogram which was reportedly normal. Patient also sees Dr. Kiser (endocrinology) and Dr. Zabala ( PCP). Patient admitted to telemetry for the following reasons: #Atypical chest pain, left-sided and reproducible on palpation -Patient admitted to telemetry floor for management of vitals -Serial EKG/Trop; negative 3x -ECHO, EF > 60% -Consulted cardiology; will have follow up Pharmacological nuclear stress test today 04/27, normal results with no perfusion defect or wall motion abnormality; patient to follow up with Cardiology as an outpatient -Discontinued Lasix as Creatinine had been increasing; will follow up with Cardiology as an outpatient #Diabetes mellitus -Insulin sliding scale -AccuChecks #Vertigo, positional -Physical therapy evaluation for vertigo; vestibular screen testing -Positive + left gaby-hallpike for Left BPPV, treated with Nam maneuver -PT assess patient may benefit from continued PT 1-2x/week to reassess vestibular functioning as needed -PT recommend home PT for safety evaluation -If persistent, will get neurological evaluation #Home medications -Continue home medications as required Code Status: Full Code Consistent Carb 2 Diet DVT PPx. Problem List: 1. Chest pain 2. Vertigo 3. Benign paroxysmal positional vertigo 4. Diabetes mellitus 5. Rheumatoid arthritis Pain Ratin Pain Location: na Pain Goal: Remain pain free Pain Plan: na Tomorrow's Labs & Rationales: routine
[2018-04-28 09:19] VITALS: BP 134/78
--- NOTE | 2018-04-28 10:28 | PN- Cardiology ---
Subjective Subjective: Patient feels good, no complaints Objective Vital Signs and I&Os Vital Signs Date Time Temp Pulse Resp B/P B/P Pulse O2 O2 Flow FiO2 Mean Ox Delivery Rate 04/28 09 68 134/78 04/28 0905 68 134/78 04/28 0600 98.3 68 18 134/78 94 Nasal 1.0L Cannula 04/28 0000 Nasal 1.0L Cannula 04/27 2247 98.3 76 18 122/78 94 Nasal Cannula Intake & Output 04/28 1600 04/28 0800 04/28 0000 04/27 1600 04/27 0800 04/27 0000 Intake Total 120 120 Output Total 450 400 Balance -330 -280 Intake, Oral 120 120 Output, Urine 450 400 Patient 142 lb 137 lb Weight Weight Bed scale Bed scale Measurement Method Physical Exam: HEENT-PERRLA Neck-JVP normal, no bruits Lungs-few bibasilar crackles improved Heart-nl S1S2, no murmur Abdomen-soft, not tender, BS+, no organomegaly Extr-no edema, 2+ pulses Current Medications: Current Medications Sig/Renny Start time Last Medication Dose Route Stop Time Status Admin Acetaminophen 650 MG Q6P PRN 04/25 0545 AC PO Acetaminophen 1,000 MG Q6P PRN 04/25 0545 AC IV Aspirin 81 MG DAILY 04/26 900 AC 04/28 PO 09 Atorvastatin Calcium 80 MG 1700 04/25 06 AC 04/27 PO 1810 Diclofenac Sodium 1 ALICE 4 TIMES/DAY PRN 04/25 0615 AC 04/25 TOP 1139 Fenofibrate 48 MG DAILY 04/25 900 AC 04/28 PO 0905 Heparin Sodium 5,000 UNIT Q8 04/25 600 AC 04/28 (Porcine) [place] 0557 Hydroxychloroquine 200 MG DAILY 04/25 900 AC 04/28 Sulfate PO 09 Insulin Aspart 3 UNITS ONCE ONE 04/27 2230 DE 04/27 OH 04/27 2231 2223 Insulin Aspart 0 TIDAC 04/25 800 AC 04/28 SC 917 Lisinopril 5 MG DAILY 04/25 900 AC 04/28 PO 0919 Magnesium Oxide 400 MG BID 04/25 2219 DC 04/28 PO 04/28 0901 0904 Methimazole 5 MG DAILY 04/25 900 AC 04/28 PO 09 Metoprolol Succinate 25 MG DAILY 04/26 900 AC 04/28 PO 0905 Multivitamins 1 TAB DAILY 04/25 09 AC 04/28 PO 0904 Omeprazole 40 MG DAILY AC 04/25 0700 AC 04/28 PO 0557 Ondansetron HCl 4 MG Q6P PRN 04/25 0545 AC IV Polyethylene Glycol 17 GM 04/26 0900 AC 04/28 PO 0905 Prednisone 2.5 MG DAILY 04/25 900 AC 04/28 PO 09 Senna/Docusate Sodium 1 TAB AT BEDTIME 04/25 2100 AC 04/27 PO 2100 Results Recent Imaging Studies: Nuclear stress-no ischemia CXR-no acute disease Assessment/Plan Assessment/Plan 82 year old female with a past medical history significant for diabetes mellitus , hypertension, hyperlipidemia, rheumatoid arthritis, hypothyroidism woke up last night with sudden onset of left-sided sharp chest pain associated with shortness of breath. Clinical evidence of HFpEF. Troponin negative. Creatinine increased probably due to diuresis. BUN elevated but creatinine better today. Patient has persistent but improved crackles-f/u CXR negative. Echo showed diastolic dysfunction. Nuclear stress showed no ischemia. Plan: keep off diuretics OK to D/C home from cardiac standpoint continue metoprolol, lisinopril BMP in 1 week f/u with me in 2 weeks Continue telemetry? No
--- NOTE | 2018-04-30 10:24 | IV DIPYRIDAMOLE NUCLEAR STRESS ---
Clinical Diagnosis: Chest Pains Meat Pickler: Fredy Spence IV DIPYRIDAMOLE INFUSED: 35 mg IV THEOPHYLLINE INFUSED: 60 mg PATIENT WEIGHT: 141 lbs INTERPRETATION: The patient's baseline EKG showed normal sinus rhythm, no ischemia, no conduction abnormality at 74 BPM. Baseline B/P 105/60. The patient received 35 mg of dipyridamole infused intravenously over a 4 minute period. TC99M Myoview was injected after dipyridamole infusion. The patient complained of chest pressure, dizziness, and nausea. There were no EKG changes seen following pharmacologic infusion. Arrhythmias: None IMPRESSION: The test was supervised by the interpreting Tableau Analyst, who was in attendance during the entire test. No EKG evidence of stress induced myocardial ischemia. See separately dictated Nuclear Report.
== END 2018-04-28 11:37 | disposition home health service (06) | DRG 313 ==
LOC: ERH → ERHI 05:01 → 1NO 05:01 → ENTRNSPT 13:46 → EDTRNSPT 13:58 → EDTRNSPTSTS 13:58 → 1NO 14:05 → CMPTRNSPT 14:18 → 1NO 04-28 11:37
PROVIDERS: Emergency Medicine; Student in an Organized Health Care Education/Training Program
DX: R07.89 Other chest pain (principal); I13.0 Hypertensive heart and chronic kidney disease with heart failure and stage 1 through stage 4 chronic kidney disease, or unspecified chronic kidney disease; I50.30 Unspecified diastolic (congestive) heart failure; N18.3 Chronic kidney disease, stage 3 (moderate); E11.22 Type 2 diabetes mellitus with diabetic chronic kidney disease; M06.9 Rheumatoid arthritis, unspecified; E78.5 Hyperlipidemia, unspecified; H81.10 Benign paroxysmal vertigo, unspecified ear; E03.9 Hypothyroidism, unspecified; E21.3 Hyperparathyroidism, unspecified; E78.00 Pure hypercholesterolemia, unspecified; H91.90 Unspecified hearing loss, unspecified ear; Z79.4 Long term (current) use of insulin; K21.9 Gastro-esophageal reflux disease without esophagitis; Z96.652 Presence of left artificial knee joint; Z96.642 Presence of left artificial hip joint; Z91.018 Allergy to other foods
CPT/HCPCS: 1NSP; 36415; 36592; 71045; 78452; 81001; 82436; 87040; 87086; 87147; 93005; 93010; 93016; 93017; 93306; 96374; 97112-GO; 97116-GO; 97161-GP; A9561; J1245; J1644; J1940; J3490